=== PATIENT | male | born 1970 | race Caucasian/White ===

== ENCOUNTER 2020-05-05 23:15 | Emergency (ER) | payer OTHER ==
[~2020-05-05] VITALS: Ht 177.8 cm; Wt 88.0 kg
[2020-05-05 23:18] VITALS: BP 133/84
[2020-05-05] MEDS ORDERED: KETOROLAC 30 MG/1 ML IM ONE (23:30)
[2020-05-05] MEDS ORDERED: KETOROLAC 30 MG/1 ML ONE (23:38)
--- NOTE | 2020-05-06 00:27 | NUR ---
PT SAT IN CHAIR, NADN, RESPIRATIONS EVEN AND UNLABORED. PT WAS CONTINUALLY MOVING SHOULDER ROUND IN ATTEMPT TO MAKE IT FEEL BETTER.
== END 2020-05-06 00:28 | disposition home or self-care (01) ==
LOC: ED 05-06 00:01
DX: G89.11 Acute pain due to trauma (principal); M25.512 Pain in left shoulder; X58.XXXA Exposure to other specified factors, initial encounter; Y93.89 Activity, other specified; Y92.89 Other specified places as the place of occurrence of the external cause; Y99.0 Civilian activity done for income or pay
CPT/HCPCS: 73030; 96372; 99283; J1885